=== PATIENT | female | born 1965 | race Hispanic/Latino ===

== ENCOUNTER 2017-01-02 03:34 | Inpatient (IN) ==
[2016-12-27 12:54] LABS: MANUAL DIFF NEEDED? NO; URINE MICRO REVIEW NEEDED? NO; URINE SOURCE CLEAN CATCH
[2016-12-27 13:02] LABS: BASO% 0.5 % (0.0-0.8); EOS# 0.48 X1000 (0.0-0.7); EOS% 6.3 % (0.0-10.0); HEMATOCRIT 44.5 % (37.0-47.0); HEMOGLOBIN 14.7 g/dL (12.0-16.0); LYMPH# 2.08 X1000 (1.2-3.4); LYMPH% 27.2 % (20.5-51.1); MCH 31.1 PG (27-31); MCV 94.3 FL (81-99); MONO# 0.47 X1000 (0.11-0.59); MONO% 6.1 % (1.7-9.3); MPV 10.1 FL (7.4-10.4); NEUT% 59.9 % (42.2-75.2); PLT 287 X1000 (130-400); RBC 4.72 XMIL (4.2-5.4)
[2016-12-27 13:04] LABS: BILIRUBIN URINE NEGATIVE (NEGATIVE); BLOOD URINE NEGATIVE (NEGATIVE); COLOR YELLOW; GLUCOSE URINE NEGATIVE (NEGATIVE); LEUKOCYTES URINE NEGATIVE (NEGATIVE); NITRITE URINE NEGATIVE (NEGATIVE); PH URINE 6.5; PROTEIN URINE NEGATIVE (NEGATIVE); SP GRAVITY URINE 1.021; TURBIDITY URINE CLEAR (CLEAR); UROBILINOGEN URINE NORMAL (NORMAL)
[2016-12-27 13:07] LABS: UR EPITHELIAL CELLS <10 /HPF (<10); URINE BACTERIA NEGATIVE /HPF; URINE RBC <10 /HPF (<10); URINE WBC <10 /HPF (<10)
[2016-12-27 13:12] LABS: INR 0.98; PROTIME 10.3 Seconds (9.2-11.7); PTT 27.3 Seconds (22.0-36.0)
--- NOTE | 2016-12-27 13:20 | EKG Report ---
Test Performed on : 12/27/2016 12:17:18 PM Test Reason : PAT Blood Pressure : / mmHG Vent. Rate : 073 BPM Atrial Rate : 073 BPM P-R Int : 148 ms QRS Dur : 088 ms QT Int : 400 ms P-R-T Axes : 041 -37 068 degrees QTc Int : 440 ms Normal sinus rhythm. Left axis deviation Minimal voltage criteria for LVH, may be normal variant Abnormal ECG No previous ECGs available Confirmed by Jessica ODOM, Jordan Tovar ([id number]) on 12/28/2016 7:59:29 PM
[2016-12-27 13:39] LABS: AGAP 14; BUN 19 mg/dL (8-22); CALCIUM 8.9 mg/dL (8.8-10.2); CHLORIDE 102 mmol/L (98-107); COSMO 290; POTASSIUM 3.7 mmol/L (3.5-5.1); SODIUM 144 mmol/L (136-145); TCO2 28 mmol/L (25-35)
[2017-01-02] MEDS ORDERED: MORPHINE IV PRN (07:09)
[2017-01-02] MEDS ORDERED: REGLAN ONE (09:32)
[2017-01-02] MEDS ORDERED: PEPCID ONE (09:32)
[2017-01-02] MEDS ORDERED: LYRICA ONE (09:32)
[2017-01-02] MEDS ORDERED: LR 1,000 ML ONE (09:33)
[2017-01-02] MEDS ORDERED: KEFZOL 2 GM/D5W 2 GM/50 ML IVPB ONE (09:36)
[2017-01-02] MEDS: COLACE PO SCH ×2 (09:46→23:04)
[2017-01-02] MEDS: CELEBREX PO SCH (09:46)
[2017-01-02] MEDS ORDERED: TORADOL ONE (10:56)
[2017-01-02] MEDS ORDERED: DURAMORPH ONE (10:57)
[2017-01-02] MEDS ORDERED: VANCOMYCIN ONE (10:57)
[2017-01-02] MEDS ORDERED: MARCAINE 0.25% PF/EPI 1:200,000 ONE (10:57)
[2017-01-02] MEDS ORDERED: NEOSPORIN G.U. IRRIGANT ONE (10:57)
[2017-01-02] MEDS ORDERED: SODIUM CHLORIDE 0.9% ONE (10:57)
[2017-01-02] MEDS ORDERED: CLAVE SECONDARY SET 11953 ONE (10:58)
[2017-01-02] MEDS ORDERED: EXPAREL 1.3% ONE (10:58)
[2017-01-02] MEDS ORDERED: CYKLOKAPRON 1,000 MG/NS 1,000 MG/100 ML IVPB ONE ×2 (11:26)
[2017-01-02 12:23] LABS: URINE MICRO REVIEW NEEDED? NO; URINE SOURCE CATH
[2017-01-02 12:46] LABS: BILIRUBIN URINE NEGATIVE (NEGATIVE); BLOOD URINE NEGATIVE (NEGATIVE); COLOR YELLOW; GLUCOSE URINE NEGATIVE (NEGATIVE); LEUKOCYTES URINE NEGATIVE (NEGATIVE); NITRITE URINE NEGATIVE (NEGATIVE); PROTEIN URINE NEGATIVE (NEGATIVE); TURBIDITY URINE CLEAR (CLEAR); UR EPITHELIAL CELLS <10 /HPF (<10); URINE BACTERIA NEGATIVE /HPF; URINE RBC <10 /HPF (<10); URINE WBC <10 /HPF (<10); UROBILINOGEN URINE 2 mg/dL (NORMAL)
--- NOTE | 2017-01-02 13:29 | OPERATIVE NOTE ---
PROCEDURE DATE: 01/02/2017 PREOPERATIVE DIAGNOSIS: Degenerative joint disease right knee. POSTOPERATIVE DIAGNOSIS: Degenerative joint disease right knee. PROCEDURE PERFORMED: Right total knee replacement. SURGEON: Kat Jarvis MD. PROGRAM DEVELOPMENT MANAGER: Katty Lerma. ANESTHESIA: Spinal. COMPLICATION: None. PROCEDURE IN DETAIL: This 51-year-old female presents for right knee replacement. Risks, benefits, and no guarantees were discussed, and she is willing to proceed. She was taken to the operating room and satisfactory anesthesia obtained. The right knee was prepped and draped in usual sterile fashion. A time-out was taken to confirm operative site, procedure, and patient. The right leg was then wrapped with an Esmarch. Tourniquet inflated to 350 mmHg. A midline incision was made over the front of the knee followed by a quad tendon sparing arthrotomy. The patella was everted and resurfaced with freehand technique and later sized to a DePuy Attune 38 medialized dome patella. With the patella subluxed laterally the knee was flexed. An intramedullary hole made in the distal femur and the distal femoral cutting block secured in 5 degrees of valgus. Distal femoral resection was then made and the femur sized to a size 6 narrow DePuy Attune femoral component. The 4 in 1 block was secured and the anterior, posterior, and chamfer cuts were sequentially made. Afterwards, any remaining osteophytes were debrided about the femur. With the PCL retractor behind the tibia to protect the neurovascular bundle, the tibial cutting block was secured and the tibial resection made. Flexion and extension gaps were noted to be roughly equal. The tibia was sized to a size 5 tibial base plate. A trial reduction was performed with good range of motion and stability with a [address]. The trial components were removed. The bony surfaces thoroughly irrigated with pulsatile lavage. Cement with a gram of vancomycin was utilized to cement a DePuy Attune size 5 rotating platform base plate, a size 6 narrow right cruciate retaining femur and a 38 medialized dome patella. Excess cement was removed with a Towson elevator as necessary. While the cement hardened, the joint capsule was injected with Exparel and a Hemovac drain placed and brought out through the lateral retinaculum. After curing the cement, a size 6 rotating platform poly 6 mm thick was inserted in the tibial tray and the knee reduced. The knee was then copiously irrigated with irrigant. It was closed over the drain with #1 Vicryl in the arthrotomy, 2-0 Vicryl in the subcutaneous, and skin josafat on the skin edges. Sterile dressings completed the closure and the patient was recovered from anesthesia and transferred to recovery room in stable condition. No intraoperative complications were noted. Instrument count and sponge count was correct at time of closure. Tourniquet was released with good return of capillary blood flow. cc: Edmundo Jarvis MD
[2017-01-02] MEDS ORDERED: VERSED ONE (13:39)
[2017-01-02] MEDS ORDERED: FENTANYL ONE (13:39)
[2017-01-02] MEDS ORDERED: DIPRIVAN 1% ONE (13:40)
[2017-01-02] MEDS ORDERED: NS 1,000 ML ONE (14:13)
[2017-01-02] MEDS ORDERED: EPHEDRINE ONE (14:30)
[2017-01-02] MEDS ORDERED: LR 2,000 ML ONE (14:30)
[2017-01-02] MEDS ORDERED: OFIRMEV 1000 MG/ISOTONIC SOLN 1,000 MG/100 ML BOTTLE ONE (14:30)
[2017-01-02] MEDS ORDERED: ZOFRAN ONE (14:30)
[2017-01-02] MEDS ORDERED: DECADRON ONE (14:30)
--- NOTE | 2017-01-02 14:34 | Diag Imaging Result Document ---
PROCEDURE NAME: KNEE 1-2 VIEWS-RIGHT - 01/02/2017 PLAIN RADIOGRAPH OF THE RIGHT KNEE 2 VIEWS: COMPARISON: None available. FINDINGS: There has been a recent right knee arthroplasty. The arthroplasty hardware is in the expected position. Anterior skin josafat and a drainage catheter are in place. IMPRESSION: Satisfactory postoperative knee.
[2017-01-02] MEDS: NORCO-10 PO PRN ×2 (17:58→23:02)
--- NOTE | 2017-01-02 18:03 | HISTORY AND PHYSICAL ---
CHIEF COMPLAINT: Right knee pain. HISTORY OF PRESENT ILLNESS: Ms. Veras is a 51-year-old female with a history of right knee pain. She states that her knee has been causing her pain for about a year and a half and she has had arthroscopic surgery in the past. Radiographic images obtained of her right knee reveals images consistent with advanced degenerative joint disease. She will be admitted to the hospital today for a right total knee arthroplasty. PAST MEDICAL HISTORY: Asthma as a child. SURGICAL HISTORY: No surgery. FAMILY HISTORY: Her mother had a cerebrovascular accident. SOCIAL HISTORY: She is . Denies using tobacco, denies using alcohol. HOME MEDICATIONS: None. ALLERGIES: No known drug allergies. PRIMARY CARE PROVIDER: None. REVIEW OF SYSTEMS: HEENT: The patient reports wearing glasses. Denies any other HEENT problems. Cardiac: Patient denies any chest pain, shortness of breath, syncope. Pulmonary: Patient denies any coughing or wheezing, hemoptysis. Gastrointestinal: Patient denies any nausea, vomiting, diarrhea, or any chronic GI problems. Genitourinary: Patient denies any genitourinary problems. Neurological: The patient denies any dysesthesias or any neurological deficits. Musculoskeletal: Patient reports right knee pain. PHYSICAL EXAMINATION: GENERAL: The patient is awake, she is sitting up in bed. She is articulate and able to answer questions appropriately. HEENT: Head is normocephalic, atraumatic. Pupils equal, round, react to light. Nares patent. Throat without exudate. CARDIAC: S1-S2 auscultated. No murmur, rub or gallop noted. LUNGS: Clear to auscultation bilaterally in all lung gambino. GASTROINTESTINAL: Abdomen is soft, nontender, nondistended. Bowel sounds present in all quadrants. GENITOURINARY: Not examined. NEUROLOGICAL: Patient has good sensation to dull touch in all extremities. Cranial nerves 2-12 grossly intact. MUSCULOSKELETAL: Exam of the right knee reveals right knee pain with palpation and passive range of motion. IMPRESSION: Osteoarthritis of right knee. PLAN: Right total knee arthroplasty. The risks, benefits, and alternatives of surgery were discussed with the patient including risk of anesthesia, infection, bleeding, damage to blood vessels, nerves, tendons, ligaments, and other imponderables and the patient agrees to proceed with the surgery at this time. Dictated by PHILIP Walton for Edmundo Jarvis MD cc: PHILIP Walton MD
[2017-01-02] MEDS: PERIDEX MT SCH (23:04)
[2017-01-03] MEDS: NS 1,000 ML IV SCH ×3 (02:03→14:56)
[2017-01-03] MEDS: KEFZOL 1 GM/D5W 1 GM/50 ML IVPB IV SCH ×2 (02:12→09:30)
[2017-01-03] MEDS ORDERED: XARELTO PO SCH (06:00)
[2017-01-03 06:25] LABS: HEMATOCRIT 36.8 % (37.0-47.0); HEMOGLOBIN 12.3 g/dL (12.0-16.0)
[2017-01-03] MEDS: NORCO-10 PO PRN ×3 (06:39→14:07)
[2017-01-03 07:05] LABS: AGAP 10; BUN 7 mg/dL (8-22); CALCIUM 8.6 mg/dL (8.8-10.2); CHLORIDE 105 mmol/L (98-107); COSMO 280; POTASSIUM 4.4 mmol/L (3.5-5.1); SODIUM 141 mmol/L (136-145); TCO2 26 mmol/L (25-35)
[2017-01-03] MEDS: CELEBREX PO SCH (09:30)
[2017-01-03] MEDS: COLACE PO SCH (09:31)
[2017-01-03] MEDS: PERIDEX MT SCH (09:31)
[2017-01-03 12:04] VITALS: BP 115/57
--- NOTE | 2017-01-03 14:56 | DISCHARGE SUMMARY ---
ADMISSION DATE: 01/02/2017 DISCHARGE DATE: 01/03/2017 ADMITTING DIAGNOSIS: Degenerative joint disease of the right knee. ADDITIONAL DIAGNOSIS: Asthma as a child. DISCHARGE DIAGNOSES: Degenerative joint disease right knee. ADMITTING HISTORY AND HOSPITAL COURSE: Ms. Veras is a 51-year-old female with history of right knee pain. She states this caused her pain for about a year and a half. She was admitted to the hospital for a right total knee arthroplasty yesterday. After surgery, she remained afebrile. Her vital signs remained stable. Her hematocrit is currently 36.8. She is ambulating about 250 feet with a front wheel walker. She shows no signs of infection or DVT. The dressing is dry and clean. We plan to allow her to go home with outpatient physical therapy. DISCHARGE MEDICATIONS: 1. Nisland 10 mg 1 to 2 p.o. q.4-6 hours p.r.n. for pain. 2. Xarelto 10 mg p.o. daily for 14 days. DISCHARGE INSTRUCTIONS: Ms. Veras is to discharge home and she is to begin outpatient physical therapy regimen tomorrow at the physical therapy place of her choice. I discussed with her if she has any worsening signs or symptoms she needs to call us at the office. I also discussed with her she will be going home on anticoagulant, Xarelto and Nisland. I went over the indications and the side effects to watch for. She will need to follow with Dr. Jarvis in about 10 days for followup appointment and have her josafat removed. Dictated by PHILIP Walton for Edmundo Jarvis MD cc: PHILIP Walton MD
== END 2017-01-03 16:31 | disposition home or self-care (01) ==
LOC: SURHOLD 03:34 → 4N 14:32
PROVIDERS: ADMIT Orthopaedic Surgery Adult Reconstructive Orthopaedic Surgery; ATTEND Orthopaedic Surgery Adult Reconstructive Orthopaedic Surgery